=== PATIENT | female | born 1970 ===

== ENCOUNTER 2016-11-03 14:03 | Emergency (ER) | payer SELFPAY ==
[2016-11-03 14:04] VITALS: BMI 32.5
[2016-11-03 14:31] VITALS: RESP 18
[2016-11-03 15:21] LABS: RBC URINE 9 /hpf (0-3); URINE BACTERIA MOD (<OCC); URINE BILIRUBIN NEGATIVE (NEGATIVE); URINE BLOOD NEGATIVE (NEGATIVE); URINE COLOR Yellow (YELLOW); URINE GLUCOSE (UA) NORMAL (Normal); URINE KETONE NEGATIVE (NEGATIVE); URINE LEUKOCYTE ESTERASE 1+ Leu/uL (Negative); URINE PROTEIN NEGATIVE (NEGATIVE); URINE UROBILINOGEN NORMAL mg/dL (0.2-1.0); WBC URINE 60 /hpf (0-5)
--- NOTE | 2016-11-03 15:51 | RAD ---
PROCEDURE: Left Hip X-ray Radiographs. HISTORY: Pain, h/o breast CA COMPARISON: None. FINDINGS: BONES: Large lytic lesion proximal right femur primarily affecting the femoral neck extending into the inter trochanteric region. No obvious pathologic fracture. No additional lytic or blastic abnormalities. JOINTS: Normal. SOFT TISSUES: Normal. OTHER FINDINGS: None. IMPRESSION: Large lytic lesion in the proximal left femur without pathologic fracture.
--- NOTE | 2016-11-03 15:52 | RAD ---
PROCEDURE: Radiographs of the Lumbar Spine. HISTORY: Low back pain radiating down LLE COMPARISON: No prior. FINDINGS: BONES: Scoliosis, secondary degenerative change at multiple levels. No evidence of fracture. No discernible lytic or blastic abnormalities. DISC SPACES: Unremarkable. OTHER FINDINGS: None. IMPRESSION: No acute findings related to/accounting for the clinical presentation.
--- NOTE | 2016-11-03 16:02 | C.PDOC ---
History Of Present Illness Pt c/o left lower back/left buttock pain radiating down LLE. Time Seen by Provider: 11/03/16 14:32 Chief Complaint (Nursing): Back Pain History Per: Patient, Family Onset/Duration Of Symptoms: Days (about 2 months), Persistent Current Symptoms Are (Timing): Still Present Quality Of Discomfort: "Pain" Severity: Moderate Previous Symptoms: None Associated Symptoms: None Exacerbating Factor(s): Movement Additional History Per: Prior Records Past Medical History Reviewed: Historical Data, Nursing Documentation, Vital Signs Vital Signs: Last Vital Signs Temp 98.9 F 11/03/16 14:27 Pulse 95 H 11/03/16 14:27 Resp 18 11/03/16 14:27 BP 133/86 11/03/16 14:27 Pulse Ox - Medical History PMH: Anemia, Asthma, Malignancy (Breast) Other Surgeries: Mastectomy Family History: States: Unknown Family Hx - Social History Hx Tobacco Use: No Hx Alcohol Use: No Hx Substance Use: No - Immunization History Hx Tetanus Toxoid Vaccination: No Hx Influenza Vaccination: No Hx Pneumococcal Vaccination: No Review Of Systems Except As Marked, All Systems Reviewed And Found Negative. Constitutional: Negative for: Fever, Weakness Cardiovascular: Negative for: Chest Pain Respiratory: Negative for: Shortness of Breath Gastrointestinal: Negative for: Vomiting, Abdominal Pain Genitourinary: Negative for: Dysuria, Incontinence Musculoskeletal: Positive for: Back Pain, Leg Pain (left). Negative for: Neck Pain Skin: Negative for: Rash Neurological: Negative for: Weakness, Numbness, Seizures, Altered Mental Status Physical Exam - Physical Exam Appears: Non-toxic, No Acute Distress Skin: Normal Color, Warm, Dry, No Rash Head: Atraumatic, Normacephalic Eye(s): bilateral: PERRL, EOMI Neck: Normal ROM, Supple Cardiovascular: Rhythm Regular Respiratory: Normal Breath Sounds, No Accessory Muscle Use Gastrointestinal/Abdominal: Soft, No Tenderness Back: No Vertebral Tenderness, Straight Leg Raising (left) Extremity: Normal ROM, No Pedal Edema, No Calf Tenderness Neurological/Psych: Oriented x3, Normal Motor, Normal Sensation ED Course And Treatment - Laboratory Results Interpretation Of Abnormal: Probable UTI Urine POC: Negative - Other Rad LS spine x-rays X-Ray: Viewed By Me, Read By Radiologist Interpretation: IMPRESSION: No acute findings related to/accounting for the clinical presentation. Left hip x-rays X-Ray: Viewed By Me, Read By Radiologist Interpretation: IMPRESSION: Large lytic lesion in the proximal left femur without pathologic fracture. Reassessment Condition: Improved Disposition Counseled Patient/Family Regarding: Studies Performed, Diagnosis, Need For Followup, Rx Given - Disposition Referrals: Marcello Yang MD [Staff Provider] - [facility] [Outside] Disposition: HOME/ ROUTINE Disposition Time: 16:04 Condition: STABLE Additional Instructions: Rest. Drink plenty of fluids. Follow up with your doctor as scheduled this week for further evaluation and treatment. Return to the ER if you develop fever, abdominal pain, trouble urinating, worsening of symptoms or of you have any other concerns. Prescriptions: Ciprofloxacin [Cipro] 1 tab PO BID #10 tab oxyCODONE/Acetaminophen [Percocet 5/325 mg Tab] 1 tab PO QID PRN #20 tab PRN Reason: Pain Instructions: Urinary Tract Infection in Women (ED), Back Pain (ED) Forms: Gen Discharge Inst [place]an Print Language: CZECH - Clinical Impression Clinical Impression: Lytic bone lesion of left femur, UTI (urinary tract infection)
[2016-11-03 16:24] VITALS: BP 131/72; PULSE 74; TEMP 98.1; O2SAT 99
== END 2016-11-03 16:23 | disposition home or self-care (01) ==
LOC: C.ER 14:03
DX: N39.0 Urinary tract infection, site not specified (principal); M79.605 Pain in left leg
CPT/HCPCS: 72100; 73502; 81001; 84703; 96372; 99285; J1885